=== PATIENT | female | born 1990 | race Two or more races ===

== ENCOUNTER 2021-12-05 13:45 | Observation (INO) | payer MEDICAID ==
[~2021-12-05] VITALS: Ht 170.2 cm; Wt 83.9 kg
[2021-12-05] MEDS ORDERED: PREN-96 PO (14:12)
== END 2021-12-05 14:49 | disposition home or self-care (01) ==
LOC: LDRP 13:45
PROVIDERS: ADMIT Obstetrics & Gynecology Obstetrics; ATTEND Obstetrics & Gynecology Obstetrics
DX: O23.43 Unspecified infection of urinary tract in pregnancy, third trimester (principal); Z3A.00 Weeks of gestation of pregnancy not specified
CPT/HCPCS: 59025; 81002; 94760; G0378

== ENCOUNTER 2022-02-14 20:50 | Emergency (ER) | payer MEDICAID ==
[~2022-02-14] VITALS: Ht 170.2 cm; Wt 81.6 kg
[~2022-02-14 20:50] MED LIST: PREN-96 PO
[2022-02-14] MEDS ORDERED: ALUM & MAG HYDROX-SIMETH LIQ(MAALOX) 30 ML PO ONE (21:00)
[2022-02-14 22:23] LABS: Basophils # (auto) 0 10 ^3/uL (0-0.2); Basophils % (auto) 0.4 % (0.0-2.0); Eosinophils # (auto) 0.2 10 ^3/uL (0-0.8); Eosinophils % (auto) 1.9 % (0.0-7.0); Hematocrit 40.3 % (36.0-46.0); Hemoglobin 13.8 g/dL (12.2-16.2); Lymphocytes # (auto) 1.2 10 ^3/uL (0.4-5.4); Lymphocytes % (auto) 14.9 % (10.0-50.0); Mean Corpuscular Hemoglobin 30.5 pg (28.0-32.0); Mean Corpuscular Hgb Conc. 34.2 g/dL (32.0-36.0); Monocytes # (auto) 0.6 10 ^3/uL (0-1.3); Monocytes % (auto) 7.5 % (0.0-12.0); Neutrophils # (auto) 6.1 10 ^3/uL (1.6-8.6); Neutrophils % (auto) 75.3 % (37.0-80.0); Nucleated Red Blood Cells % 0.2 %; Red Blood Cells 4.53 10^6/uL (4.0-5.20); Red Cell Distribution Width 15.5 % (11.8-14.3); White Blood Cell 8.1 10^3/uL (4.4-10.8)
[2022-02-14 22:35] LABS: Albumin 2.9 g/dL (3.4-5.0); Calcium 8.9 mg/dL (8.5-10.1)
[2022-02-14 22:38] LABS: BUN/Creatinine Ratio 18.5; Bilirubin, Total 0.4 mg/dL (0.2-1.0); Total Protein 7.2 g/dL (6.4-8.2)
[2022-02-14 23:04] LABS: Urine Bacteria NONE SEEN /hpf (None Seen); Urine Blood 3+ /uL (Negative); Urine Specific Gravity 1.016 (1.001-1.035); Urine WBC 4 /hpf (0 - 5)
[2022-02-15 02:00] VITALS: BP 110/71
== END 2022-02-15 02:38 | disposition home or self-care (01) ==
LOC: ER 20:50
DX: R10.13 Epigastric pain (principal); Z79.899 Other long term (current) drug therapy
CPT/HCPCS: 36415; 74176; 80053; 81001; 83690; 84702; 85025